=== PATIENT | female | born 1985 | race Caucasian/White ===

== ENCOUNTER 2022-03-10 18:14 | Emergency (ER) | payer SELFPAY ==
[2022-03-10] MEDS ORDERED: AMOXicillin 250 MG CAP ONE (19:44)
[2022-03-10] MEDS ORDERED: predniSONE 20 MG TAB ONE (20:45)
[2022-03-10] MEDS ORDERED: HYDROcodone/Acetaminophen 5/325 mg Tablet ONE (20:45)
== END 2022-03-10 20:49 | disposition home or self-care (01) ==
LOC: BURERS 18:14
DX: S29.011A Strain of muscle and tendon of front wall of thorax, initial encounter (principal); J06.9 Acute upper respiratory infection, unspecified; H66.90 Otitis media, unspecified, unspecified ear; I10 Essential (primary) hypertension; Z87.891 Personal history of nicotine dependence
CPT/HCPCS: 71045; J7512; J7620